=== PATIENT | male | born 1935 | race Caucasian/White ===

== ENCOUNTER 2018-07-09 07:28 | Day surgery (SDC) | payer OTHER, MEDICARE ==
[2018-07-04 13:14] VITALS: BMI 24.3
[2018-07-09] MEDS ORDERED: LIDOCAINE 1%/EPI 1:100000 (20 ML MULTI DOSE VIAL) ONE (09:04)
[2018-07-09] MEDS ORDERED: POVIDONE-IODINE 5% OPHTHALMIC PREP 30 ML SOLUTION ONE (09:04)
[2018-07-09] MEDS ORDERED: ERYTHROMYCIN 0.5% OPHTHALMIC OINTMENT 3.5 GM TUBE ONE (09:04)
[2018-07-09] MEDS ORDERED: TETRACAINE 0.5% OPHTH SOLN 2 ML BOTTLE ONE (09:04)
[2018-07-09] MEDS ORDERED: MIDAZOLAM HCL 2 MG/2 ML SINGLE DOSE VIAL ONE (09:35)
[2018-07-09] MEDS ORDERED: ceFAZolin SODIUM 1 GM VIAL ONE (09:38)
[2018-07-09 11:12] VITALS: TEMP 97.9
[2018-07-09 11:39] VITALS: BP 137/67; PULSE 65
[2018-07-09] MEDS ORDERED: ONDANSETRON 4 MG/2 ML VIAL IVPUSH PRN (13:41)
[2018-07-09] MEDS ORDERED: LACTATED RINGERS SOLUTION 1,000 ML IV SCH (13:45)
--- NOTE | 2018-07-09 14:12 | OP ---
DATE OF OPERATION: 07/09/2018 PREOPERATIVE DIAGNOSIS: Involutional ptosis, right upper lid. POSTOPERATIVE DIAGNOSIS: Involutional ptosis, right upper lid, with visual obstruction. PROCEDURE: Levator advancement, resection, retention, right upper lid. SURGEON: Iván Bernal MD ANESTHESIA: Local with sedation. COMPLICATIONS: None. ESTIMATED BLOOD LOSS: 1 mL OPERATIVE REPORT: Patient brought to the operating room, placed on the operating room table. Vital signs were monitored by Anesthesia. Tetracaine was placed in both eyes. Lid creases were marked preoperatively in the holding area and was remeasured at approximately 10 mm above the . After a timeout was performed, 2% Xylocaine with 1:100,000 epinephrine was injected for 0.5 mL in the right upper lid. This was massaged for dispersion. Patient was prepped and draped in the usual sterile fashion exposing both eyes. The crease incision was then made with a 15 blade through skin and subcutaneous tissue, and then through the orbicularis muscle exposing the septum. Small suborbicularis dissection was carried out superiorly until the fat pad was identified up in the superior orbit and the septum was widely opened with fat prolapse that was retracted exposing completely dehisced levator aponeurosis with some fatty degeneration. The levator aponeurosis was freed from any adhesions and the suborbicular plane was dissected freely exposing the anterior superior half of the tarsus and the Simmons's muscle arcade at the top of the tarsus. At this point a double-arm 6-0 Vicryl suture was passed in mattress fashion through the tarsus with 2 bites at the appropriate position for good contour, and then each arm was then passed through the levator and the fatty degeneration at the inferior edge of the levator was resected. This was tied. The patient was placed in upright position. It was felt to be too high compared to the other lid and generally speaking. Therefore, the patient was placed supine. The sutures were then placed in the leading edge of the levator without as much advancement as previous and suture was tied. The patient was placed in the upright position and the lid contour and height were seen to be excellent, approximately 2 to 2.5 mm above the visual axis. Therefore, the Vicryl was tied with multiple locking knots. Antibiotic lubrication was used. Small amount of supplemental anesthesia was injected temporally and nasally, and the wound was closed with running 6-0 plain suture with plastic technique. Erythromycin ointment was placed on the sutures and the patient was taken to the recovery room in stable condition. The lid was everted prior to closing the skin and it demonstrated that there was no penetration of the suture through the tarsal plate. IVÁN BERNAL M.D. [id number]
== END 2018-07-09 11:40 | disposition home or self-care (01) ==
LOC: FASU 07:28
PROVIDERS: ATTEND Ophthalmology
PROC: 08SN0ZZ Reposition Right Upper Eyelid, Open Approach (ICD-10-PCS; principal; 2018-07-09 09:46)
DX: H02.409 Unspecified ptosis of unspecified eyelid (principal); H53.40 Unspecified visual field defects
CPT/HCPCS: 36415; 84132; 94760